=== PATIENT | male | born 1980 ===

== ENCOUNTER 2021-11-08 19:56 | Emergency (ER) | payer OTHER ==
[2021-11-08 20:33] LABS: ANION GAP 22.6 mEq/L (7-13); CHLORIDE,CL 102 mmol/L (98-107); SODIUM,NA 142 mmol/L (136-145)
[2021-11-08] MEDS ORDERED: Sodium Chloride 0.9% 1,000 ML IV ONE (21:00)
== END 2021-11-08 22:05 | disposition home or self-care (01) ==
LOC: DL.ED 19:56
DX: S82.122A Displaced fracture of lateral condyle of left tibia, initial encounter for closed fracture (principal); V29.9XXA Motorcycle rider (driver) (passenger) injured in unspecified traffic accident, initial encounter; Y92.410 Unspecified street and highway as the place of occurrence of the external cause
CPT/HCPCS: 29505; 36415; 73560; 80053; 80307; 81001; 85025; 99284; J7030